=== PATIENT | male | born 1980 | race African-American/Black ===

== ENCOUNTER 2020-10-23 16:35 | Emergency (ER) | payer OTHER ==
[~2020-10-23] VITALS: Ht 177.8 cm; Wt 111.0 kg
[2020-10-23] MEDS ORDERED: IBUPROFEN 200 MG TABLET. PO ONE (18:30)
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
[2020-10-23] MEDS ORDERED: IBUP-1007 PO (20:22)
[2020-10-23] MEDS ORDERED: CYCL5TAB PO (20:22)
[2020-10-23] MEDS ORDERED: HYDR-2761 PO (20:22)
[2020-10-23 20:54] VITALS: BP 123/82
== END 2020-10-23 21:02 | disposition home or self-care (01) ==
LOC: ER 16:35
DX: G89.11 Acute pain due to trauma (principal); M54.9 Dorsalgia, unspecified; F17.200 Nicotine dependence, unspecified, uncomplicated; V49.9XXA Car occupant (driver) (passenger) injured in unspecified traffic accident, initial encounter; Y93.89 Activity, other specified; Y92.413 State road as the place of occurrence of the external cause; Y99.8 Other external cause status
CPT/HCPCS: 72072; 72100; 72125; 99284